=== PATIENT | female | born 1980 | race Caucasian/White ===

== ENCOUNTER 2022-04-08 10:54 | Emergency (ER) | payer SELFPAY ==
[2022-04-08 11:02] VITALS: BP 143/83; PULSE 92; RESP 18; TEMP 98.2; BMI 46.0
[2022-04-08] MEDS ORDERED: morphine CARPU-JECT 2 MG/1 ML DISP.SYRIN IVPUSH ONE ×2 (11:53→13:55)
[2022-04-08 13:16] LABS: BASO % 2.6 % (0-2.0); EOS % 2.5 % (0-4.5); HEMOGLOBIN 14.5 GM/dL (10.7-15.3); LYMPH % 40.2 % (8-40); MCH 30.9 pg (25.7-33.7); MCHC 33.7 g/dl (32.0-36.0); MEAN CELL VOLUME 91.5 fl (80-96); MEAN PLT VOLUME 7.5 fl (7.5-11.1); MONO % 6.9 % (3.8-10.2); NEUT % 47.8 % (42.8-82.8); PLATELET COUNT 565 10^3/uL (134-434); RDW 14.8 % (11.6-15.6); WHITE BLOOD COUNT 11.8 K/mm3 (4.0-10.0)
[2022-04-08 13:23] LABS: INR 1.02 (0.83-1.09); PROTHROMBIN TIME (PATIENT) 11.7 SEC (9.7-13.0)
[2022-04-08 13:26] LABS: ACTIVATED PTT 35.1 SECONDS (25.2-36.5)
[2022-04-08 13:33] LABS: CHLORIDE 106 mmol/L (98-107); SODIUM 138 mmol/L (136-145)
[2022-04-08 13:35] LABS: CALCIUM 9.4 mg/dL (8.5-10.1)
[2022-04-08 13:36] LABS: ALBUMIN 3.9 g/dl (3.4-5.0); ANION GAP 9 MMOL/L (8-16); BLOOD UREA NITROGEN 8.6 mg/dL (7-18); CO2 23 mmol/L (21-32); GLUCOSE,RANDOM 91 mg/dL (74-106)
[2022-04-08 13:39] LABS: CREATININE 0.7 mg/dL (0.55-1.3); SGOT/AST 32 U/L (15-37); SGPT/ALT 20 U/L (13-61)
[2022-04-08 13:40] LABS: TOT PROT 7.1 g/dl (6.4-8.2)
[2022-04-08 13:41] LABS: BILIRUBIN,TOTAL 0.5 mg/dL (0.2-1)
[2022-04-08 13:42] LABS: ALK PHOS 92 U/L (45-117)
== END 2022-04-08 16:46 | disposition home or self-care (01) ==
LOC: JER 10:54
PROC: 3E033GC Introduction of Other Therapeutic Substance into Peripheral Vein, Percutaneous Approach (ICD-10-PCS; principal; 2022-04-08)
PROC: 3E033GC Introduction of Other Therapeutic Substance into Peripheral Vein, Percutaneous Approach (ICD-10-PCS; 2022-04-08)
PROC: 3E033GC Introduction of Other Therapeutic Substance into Peripheral Vein, Percutaneous Approach (ICD-10-PCS; 2022-04-08)
PROC: 3E033NZ Introduction of Analgesics, Hypnotics, Sedatives into Peripheral Vein, Percutaneous Approach (ICD-10-PCS; 2022-04-08)
PROC: 3E033NZ Introduction of Analgesics, Hypnotics, Sedatives into Peripheral Vein, Percutaneous Approach (ICD-10-PCS; 2022-04-08)
DX: M53.3 Sacrococcygeal disorders, not elsewhere classified (principal)
CPT/HCPCS: 36415; 72193-TC; 80053; 84702; 85025; 85610; 85730; 99285-25